=== PATIENT | male | born 1970 | race African-American/Black ===

== ENCOUNTER 2017-01-31 08:22 | Emergency (ER) | payer OTHER ==
[~2017-01-31] VITALS: Ht 177.8 cm; Wt 104.5 kg
[~2017-01-31 08:22] MED LIST: AMOX875 PO
[2017-01-31 08:24] VITALS: BP 139/81; PULSE 84; RESP 15; TEMP 98.2; O2SAT 98
[2017-01-31] MEDS ORDERED: TRAM50TA PO (10:44)
--- NOTE | 2017-01-31 10:48 | PD ---
HPI Chief Complaint: Headache Time Seen by Provider: 09:01 Travel History International Travel<30 days: No Contact w/Intl Traveler<30days: No Traveled to known affect area: No History of Present Illness HPI This patient complains of headache. He has a bilateral throbbing in the temples. No Thunderclap onset. His headache is not severe. No fever or head injury. Denies muscle weakness or sensory loss or speech slurring or other neurologic complaint. He has some fatigue issues. He has a primary physician but is never been to him. No Alleviating factors. PFSH Past Medical History Medical History: Denies Significant Hx Diminished Hearing: No Tetanus Vaccination: > 5 Years Influenza Vaccination: No Past Surgical History Oral Surgery: Yes (JAW SURG 1997.) Social History Alcohol Use: No Tobacco Use: No Substance Use: No Allergies-Medications (Allergen,Severity, Reaction): Coded Allergies: No Known Allergies (Verified , 01/31/17) Reported Meds & Prescriptions Reported Meds & Active Scripts Active Tramadol (Tramadol HCl) 50 Mg Tab 50 Mg PO Q6H PRN Review of Systems General / Constitutional: No: Fever HENT: Positive: Headaches Cardiovascular: No: Chest Pain or Discomfort Respiratory: No: Cough Physical Exam Narrative GENERAL: Well-nourished, well-developed patient in no apparent distress. SKIN: Focused skin assessment reveals no rash and nodules. Skin is Warm and dry. HEAD: Atraumatic. Normocephalic. EYES: Pupils equal and round. No scleral icterus. No injection or drainage. ENT: No nasal bleeding or discharge. Mucous membranes pink and moist. NECK: Trachea midline. No JVD. No meningeal signs CARDIOVASCULAR: Regular rate and rhythm. No murmur appreciated. RESPIRATORY: No accessory muscle use. Clear to auscultation. Breath sounds equal bilaterally. GASTROINTESTINAL: Abdomen soft, non-tender, nondistended. Hepatic and splenic margins not palpable. MUSCULOSKELETAL: No obvious deformities. No clubbing. No cyanosis. No edema. NEUROLOGICAL: Awake and alert. No obvious cranial nerve deficits. Motor grossly within normal limits. Normal speech. PSYCHIATRIC: Appropriate mood and affect; insight and judgment normal. Data Data Last Documented VS Vital Signs Date Time Temp Pulse Resp B/P (MAP) Pulse Ox O2 Delivery O2 Flow Rate FiO2 01/31/17 08:24 98.2 84 15 139/81 (100) 98 MDM Medical Decision Making Medical Screen Exam Complete: Yes Emergency Medical Condition: Yes Medical Record Reviewed: Yes Differential Diagnosis Differential diagnosis includes migraine, tension headache, cluster headache, meningitis. Narrative Course I have reviewed the patient's electronic medical record. Patient is neurologically intact. No red flags to suggest emergent imaging is indicated. Presentation is not consistent with subarachnoid hemorrhage or stroke or meningitis Patient looks clinically well Follow-up with primary care I wrote him a small amount tramadol for some short term symptom relief Diagnosis Primary Impression: Headache Qualified Codes: R51 - Headache Additional Impression: Fatigue Qualified Codes: R53.83 - Other fatigue Additional Instructions: The patient was advised to follow up with their physician and return if they worsen. The patient was warned about potential sedation for the medications they will receive on prescription. Med/Other Pt SpecificInfo: Prescription(s) given Scripts Tramadol (Tramadol) 50 Mg Tab 50 MG PO Q6H Y for PAIN, #15 TAB 0 Refills Prov: Gareth Roberson MD 01/31/17 Disposition: 01 DISCHARGE HOME Condition: Stable Gareth Roberson MD Jan 31, 2017 10:48
== END 2017-01-31 11:13 | disposition home or self-care (01) ==
LOC: NEPE 08:22
DX: R51 Headache (principal); R53.83 Other fatigue
CPT/HCPCS: 99283